=== PATIENT | male | born 1985 | race African-American/Black ===

== ENCOUNTER 2024-05-30 11:21 | Emergency (ER) | payer MEDICAID, OTHER ==
[~2024-05-30 11:21] MED LIST: RISP0.253 PO; ZIPR20CA2 PO
== END 2024-05-30 12:29 | disposition left against medical advice (07) ==
LOC: ER 11:30
DX: Z00.00 Encounter for general adult medical examination without abnormal findings (principal); Z53.21 Procedure and treatment not carried out due to patient leaving prior to being seen by health care provider

== ENCOUNTER 2024-09-25 20:26 | Emergency (ER) | payer MEDICAID | END 2024-09-25 23:58 | disposition left against medical advice (07) | LOC: ER 20:30 | DX: Z00.00 Encounter for general adult medical examination without abnormal findings (principal); Z53.21 Procedure and treatment not carried out due to patient leaving prior to being seen by health care provider ==